=== PATIENT | female | born 1945 | race Caucasian/White ===

== ENCOUNTER 2023-10-19 08:54 | Outpatient (CLI) | payer MEDICARE, OTHER ==
[2023-10-19 09:33] LABS: BASOPHILS % (AUTO) 0.5 % (0-1); EOSINOPHILS # (AUTO) 0.2 X10'3 (0-0.9); HEMATOCRIT 43.3 % (35.0-45.0); HEMOGLOBIN 14.6 g/dl (12.0-16.0); LYMPHOCYTES # (AUTO) 1.8 X10'3 (1.1-4.8); LYMPHOCYTES % (AUTO) 20.8 % (21-51); MEAN CORPUSCULAR HEMOGLOBIN 31.6 PG (27.0-31.0); MEAN CORPUSCULAR HGB CONC 33.6 g/dL (33.0-36.5); MEAN CORPUSCULAR VOLUME 93.9 FL (78-98); MEAN PLATELET VOLUME 8.5 FL (7.4-10.4); MONOCYTES # (AUTO) 0.7 X10'3 (0-0.9); MONOCYTES % (AUTO) 7.5 % (2-12); NEUTROPHILS # (AUTO) 6.1 X10'3 (1.8-7.7); NEUTROPHILS % (AUTO) 69.2 % (42-75); PLATELET COUNT 236 X10'3 (140-440); RED CELL DISTRIBUTION WIDTH 13.3 % (11.5-14.5); WHITE BLOOD COUNT 8.8 X10'3 (4.5-11.0)
[2023-10-19 09:49] LABS: APTT 32 SECONDS (22-32); INR 1.1 INR; PROTHROMBIN TIME 11.7 SECONDS (9.0-12.0)
[2023-10-19 10:39] LABS: ALANINE AMINOTRANSFERASE 25 U/L (12-78); ALBUMIN/GLOBULIN RATIO 1.4 (1.1-1.5); ALKALINE PHOSPHATASE 124 IU/L (46-116); ANION GAP 8 (8-16); ASPARTATE AMINO TRANSFERASE 14 U/L (10-37); BILIRUBIN,TOTAL 0.8 MG/DL (0.1-1.0); BLOOD UREA NITROGEN 17 MG/DL (7-18); BUN/CREATININE RATIO 22.7 (10.0-20.0); CALCIUM 9.3 MG/DL (8.5-10.1); CHLORIDE 102 MMOL/L (99-107); CREATININE 0.75 MG/DL (0.40-0.90); GLUCOSE 93 MG/DL (70-104); POTASSIUM 3.6 MMOL/L (3.5-5.1); SODIUM 138 MMOL/L (135-145); TOTAL CARBON DIOXIDE 27.9 MMOL/L (24-32); TOTAL PROTEIN 6.9 G/DL (6.4-8.2); eGFR 75 ML/MIN
[2023-10-19] MEDS ORDERED: iohexol 350MG/ML 100ml bottle IV ONE (10:45)
== END 2023-10-19 23:59 | disposition home or self-care (01) ==
LOC: RAD 08:54
PROVIDERS: ATTEND Internal Medicine Interventional Cardiology
DX: I51.7 Cardiomegaly (principal); I48.91 Unspecified atrial fibrillation; I48.92 Unspecified atrial flutter; R91.1 Solitary pulmonary nodule; J98.11 Atelectasis; K76.89 Other specified diseases of liver; M47.819 Spondylosis without myelopathy or radiculopathy, site unspecified
CPT/HCPCS: 36415; 75572; 80053; 85025; 85610; 85730; J3490; Q9967

== ENCOUNTER 2023-12-14 05:49 | Inpatient (IN) | payer MEDICARE, OTHER ==
[2023-12-07 12:01] LABS: BASOPHILS % (AUTO) 0.6 % (0-1); EOSINOPHILS # (AUTO) 0.1 X10'3 (0-0.9); EOSINOPHILS % (AUTO) 1.1 % (0-6); LYMPHOCYTES # (AUTO) 2.2 X10'3 (1.1-4.8); LYMPHOCYTES % (AUTO) 30.1 % (21-51); MEAN CORPUSCULAR HEMOGLOBIN 31.8 PG (27.0-31.0); MEAN CORPUSCULAR HGB CONC 34.1 g/dL (33.0-36.5); MEAN CORPUSCULAR VOLUME 93.4 FL (78-98); MEAN PLATELET VOLUME 8.5 FL (7.4-10.4); MONOCYTES # (AUTO) 0.6 X10'3 (0-0.9); MONOCYTES % (AUTO) 8.4 % (2-12); NEUTROPHILS # (AUTO) 4.3 X10'3 (1.8-7.7); NEUTROPHILS % (AUTO) 59.8 % (42-75); PRE OP HEMATOCRIT 44.5 % (35.0-45.0); PRE OP HEMOGLOBIN 15.2 g/dL (12.0-16.0); PRE OP PLATELET COUNT 233 X10'3 (140-440); PRE OP WHITE BLOOD COUNT 7.2 10'3 (4.8-10.8); RED BLOOD COUNT 4.77 X10'6 (4.20-5.60)
[2023-12-07 12:02] LABS: BILIRUBIN,URINE NEGATIVE (Neg); CLARITY,URINE CLOUDY (Clear); COLOR,URINE YELLOW (Yellow); GLUCOSE, URINE NEGATIVE (Neg); KETONES,URINE NEGATIVE (Neg); LEUKOCYTE ESTERASE ,URINE MODERATE (Neg); NITRITES, URINE NEGATIVE (Neg); OCCULT BLOOD,URINE NEGATIVE (Neg); PROTEIN,URINE NEGATIVE (Neg); UROBILINOGEN,URINE 0.2 E.U/dL (0.2-1.0)
[2023-12-07 12:14] LABS: ALBUMIN 4.1 G/DL (3.4-5.0); ALBUMIN/GLOBULIN RATIO 1.4 (1.1-1.5); ALKALINE PHOSPHATASE 125 IU/L (46-116); BLOOD UREA NITROGEN 12 MG/DL (7-18); BUN/CREATININE RATIO 14.8 (10.0-20.0); CALCIUM 9.2 MG/DL (8.5-10.1); CHLORIDE 105 MMOL/L (99-107); CREATININE 0.81 MG/DL (0.40-0.90); PRE OP ALT 23 U/L (30-65); PRE OP ANION GAP 7 (8-16); PRE OP AST 18 U/L (10-37); PRE OP BILIRUB, TOTAL 0.6 MG/DL (0.0-1.0); PRE OP GLUCOSE 84 MG/DL (70-104); PRE OP POTASSIUM 3.7 MMOL/L (3.4-5.1); PRE OP SODIUM 143 MMOL/L (135-145); TOTAL CARBON DIOXIDE 31.1 MMOL/L (24-32); eGFR 68 ML/MIN
[2023-12-07 12:18] LABS: UA COLLECTION TYPE CLN CATCH MIDSTREAM
[2023-12-07 12:19] LABS: SQUAMOUS EPITHELIAL CELL,UR MANY /LPF (FEW)
[2023-12-07 12:20] LABS: AMORPHOUS PHOSPHATES 4+; TRANSITIONAL EPI CELLS,URINE MANY /HPF
[2023-12-07 12:23] LABS: WBC,URINE 20-30 /HPF (0-4)
[2023-12-07 12:26] LABS: BACTERIA,URINE 2+ /HPF (Neg); WBC CLUMPS,URINE FEW /HPF (NEGATIVE)
[2023-12-07 12:33] LABS: PRE OP INR 1.1 INR; PRE OP PROTIME 11.4 SECONDS (9.0-12.0)
[~2023-12-14] VITALS: Ht 160 cm; Wt 67.3 kg
[2023-12-14] VITALS (9 sets, daily range): BP systolic 142–177; BP diastolic 70–81; PULSE 52–69; RESP 14–16; TEMP 97.8; O2SAT 93–100
[2023-12-14] MEDS: cefazolin 2gm/D5W 100mL 100 ML IV ONE (05:30)
[~2023-12-14 05:49] MED LIST: APIX5TAB3 PO; ATOR40TA71 PO; CHLO25TA10 PO; FLEC50TA PO; LOSA100T58 PO; MAGN400C PO; MELA5TAB66 PO; MULT-1085 PO; PILO5TAB10 PO; UBID100C16 PO; ondansetron/PF 4mg/2ml inj IV PRN
[2023-12-14] MEDS: ringers solution, lacted 1,000 ML IV SCH (06:34)
[2023-12-14] MEDS: famotidine 20mg tablet PO ONE (06:34)
[2023-12-14] MEDS: vancomycin/NS 1 GM in NS 250 ML IV ONE (06:35)
[2023-12-14] MEDS ORDERED: iohexol 350MG/ML 100ml bottle IV ONE (06:50)
[2023-12-14] MEDS ORDERED: labetalol 20mg/4ml (5mg/ml) syringe IV PRN (07:15)
[2023-12-14] MEDS ORDERED: ondansetron/PF 4mg/2ml inj IV PRN (07:15)
[2023-12-14] MEDS ORDERED: ringers solution, lacted 1,000 ML IV SCH (07:15)
[2023-12-14] MEDS ORDERED: morphine 4 MG/ML inj SYRINge IV PRN (07:15)
[2023-12-14] MEDS ORDERED: hydrALAZINE 20mg/ml inj. IV PRN (07:15)
[2023-12-14] MEDS ORDERED: morphine 2 MG/ML inj. syringe IV PRN (07:15)
[2023-12-14] MEDS ORDERED: desflurane 240ml liquid inh. IH ONE (07:20)
[2023-12-14] MEDS ORDERED: flecainide 50mg tablet PO PRN (07:30)
[2023-12-14] MEDS ORDERED: PERFLUTREN PROTEIN-A MICROSPHR (Optison) 0.22 MG/ML 3ML VIAL IV ONE (07:45)
[2023-12-14] MEDS ORDERED: non-formulary drug (Ubidecarenone (Coq-10) 100 MG) PO SCH (08:00)
[2023-12-14] MEDS ORDERED: chlorthalidone 25mg tablet PO SCH (08:00)
[2023-12-14] MEDS ORDERED: sulfamethoxazole/trimethoprim DS (800/160mg) tablet PO SCH ×2 (08:00→20:00)
[2023-12-14] MEDS ORDERED: apixaban 5mg tablet PO SCH ×3 (08:00→20:00)
[2023-12-14] MEDS ORDERED: PILOCARPINE HCL 5 MG PO SCH (21:00)
[2023-12-14] MEDS ORDERED: atorvastatin 20mg tablet PO SCH (21:00)
[2023-12-15] MEDS ORDERED: multivitamins, therapeutics tablet PO SCH (08:00)
[2023-12-15] MEDS ORDERED: losartan 50mg tablet PO SCH (08:00)
[2023-12-15] MEDS ORDERED: magnesium oxide 400mg tablet PO SCH (08:00)
[2023-12-15] MEDS ORDERED: Melatonin 3mg tablet PO SCH (21:00)
== END 2023-12-14 09:23 | disposition home or self-care (01) | DRG 310 ==
LOC: PAS IN 05:49 → EDSTATUS 07:30
PROVIDERS: ADMIT Student in an Organized Health Care Education/Training Program; ATTEND Student in an Organized Health Care Education/Training Program
PROC: 03HY32Z Insertion of Monitoring Device into Upper Artery, Percutaneous Approach (ICD-10-PCS; 2023-12-14)
PROC: B24BZZ4 Ultrasonography of Heart with Aorta, Transesophageal (ICD-10-PCS; principal; 2023-12-14 07:20)
DX: I48.91 Unspecified atrial fibrillation (principal); I10 Essential (primary) hypertension; Z79.01 Long term (current) use of anticoagulants; Z79.899 Other long term (current) drug therapy; Z53.9 Procedure and treatment not carried out, unspecified reason
CPT/HCPCS: 36415; 71046; 80053; 81001; 82948; 85025; 85610; 85730; 86885; 86900; 86901; 86920; 87077; 87081; 87088; 87186; 93005; 93312; A4618; A6258; A6449; J0690; J1100; J1644; J2250; J2405; J2704; J3370; J3490; J7040; J7120; Q9956; Q9967

== ENCOUNTER 2025-02-04 11:48 | Day surgery (SDC) | payer MEDICARE, OTHER ==
[2025-02-04] VITALS (12 sets, daily range): BP systolic 114–170; BP diastolic 60–88; PULSE 52–82; RESP 13–18; O2SAT 95–98
[~2025-02-04 11:48] MED LIST changes: +AMLO2.5T2 PO; +BERB500C PO; -CHLO25TA10 PO; +CYAN50009 PO; +ERGO400C PO; +FAMO20TA8 PO; -FLEC50TA PO; -PILO5TAB10 PO; +SACC250C9 PO; +TRAZ-251 PO; -ondansetron/PF 4mg/2ml inj IV PRN
[2025-02-04 13:29] LABS: BASOPHILS % (AUTO) 0.5 % (0-1); EOSINOPHILS # (AUTO) 0.1 X10'3 (0-0.9); HEMATOCRIT 40.6 % (35.0-45.0); HEMOGLOBIN 13.9 g/dl (12.0-16.0); LYMPHOCYTES # (AUTO) 2.3 X10'3 (1.1-4.8); LYMPHOCYTES % (AUTO) 32.5 % (21-51); MEAN CORPUSCULAR HEMOGLOBIN 31.8 PG (27.0-31.0); MEAN CORPUSCULAR HGB CONC 34.2 g/dL (33.0-36.5); MEAN CORPUSCULAR VOLUME 93.2 FL (78-98); MEAN PLATELET VOLUME 8.2 FL (7.4-10.4); MONOCYTES # (AUTO) 0.5 X10'3 (0-0.9); MONOCYTES % (AUTO) 7.4 % (2-12); NEUTROPHILS # (AUTO) 4.1 X10'3 (1.8-7.7); NEUTROPHILS % (AUTO) 58.6 % (42-75); PLATELET COUNT 203 X10'3 (140-440); RED BLOOD COUNT 4.35 X10'6 (4.20-5.60); RED CELL DISTRIBUTION WIDTH 13.2 % (11.5-14.5)
[2025-02-04 13:44] LABS: ALBUMIN 4.4 G/DL (3.4-5.0); ANION GAP 9 (8-16); BLOOD UREA NITROGEN 11 MG/DL (7-18); BUN/CREATININE RATIO 16.4 (10.0-20.0); CALCIUM 9.2 MG/DL (8.5-10.1); CHLORIDE 104 MMOL/L (99-107); CREATININE 0.67 MG/DL (0.40-0.90); GLUCOSE 94 MG/DL (70-104); SODIUM 141 MMOL/L (135-145); TOTAL CARBON DIOXIDE 28.1 MMOL/L (24-32); eGFR 85 ML/MIN
[2025-02-04 13:48] LABS: APTT 28 SECONDS (22-32); INR 1.1 INR; PROTHROMBIN TIME 10.9 SECONDS (9.0-12.0)
[2025-02-04] MEDS ORDERED: ASPI-611 PO (14:54)
[2025-02-04] MEDS ORDERED: CLOP75TA33 PO (14:54)
[2025-02-04] MEDS: fentaNYL/PF 50MCG/1 ML 2ML syringe IV ONE (15:20)
[2025-02-04] MEDS: MIDAZolam 1mg/ml 10ml vial IV ONE (15:20)
--- NOTE | 2025-02-04 19:59 | CARDIOLOGY REPORT ---
APPROVED REPORT EXAM: Focused, limited transesophageal echocardiogram with color flow Doppler. Patient Location: OUT-PATIENT Blood Pressure: 169 / 93 mmHg Heart Rate: 80 bpm Rhythm: SINUS Indications POST WATCHMAN FLX LETA CLOSURE DEVICE IMPLANTATION FOLLOW UP EVALUATE DEVICE FOR THROMBUS, POSITION, AND SEAL 27mm WATCHMAN FLX LETA CLOSURE DEVICE 12/26/24 [facility] PASSED BY: Terra VIVAR MD Cloth Reeler: Terra Vivar MD Previous echo: 12/27/24 [facility] HD EF: 68%; sevLAE; intact IAS; nlAV; nlMV; mMR; trTR; LEFT VENTRICLE Normal LV size and wall thickness. Overall systolic function is normal. LVEF is 60-65%. RIGHT VENTRICLE RV is normal size and function. ATRIA LA is severely dilated. Mobile/intact interatrial septum with (size) L to R shunt s/p transseptal pun cture. Left upper pulmonary vein identified. Successfully occluded left atrial appendage with well vi sualized Watchman device well positioned without thrombus. No residual flow detected around device in all views. PERICARDIUM Normal pericardium. No effusion. CONCLUSION Normal LV size and wall thickness. Overall systolic function is normal. LVEF is 60-65%. RV is normal size and function. LA is severely dilated. Mobile/intact interatrial septum with (size) L to R shunt s/p transseptal puncture. Left upper pulmonary vein identified. Successfully occluded left atrial cassandra endage with well visualized Watchman device well positioned without thrombus. No residual flow detect ed around device in all views. Normal pericardium. No effusion. Conclusion Normal LV size and wall thickness. Overall systolic function is normal. LVEF is 60-65%. RV is normal size and function. LA is severely dilated. Mobile/intact interatrial septum with (size) L to R shunt s/p transseptal pu ncture. Left upper pulmonary vein identified. Successfully occluded left atrial appendage with well visualized Watchman device well positioned without thrombus. No residual flow detected around devic e in all views. Normal pericardium. No effusion.
== END 2025-02-04 15:50 | disposition home or self-care (01) ==
LOC: SSTAY O 11:48 → EDSTATUS 14:30 → SSTAY O 15:50
PROVIDERS: ATTEND Student in an Organized Health Care Education/Training Program
DX: I48.91 Unspecified atrial fibrillation (principal); I10 Essential (primary) hypertension
CPT/HCPCS: 36415; 80048; 85025; 85610; 85730; 93312; 93325; 94760; J2250; J3010; J7030